=== PATIENT | female | born 1950 | race Caucasian/White ===

== ENCOUNTER 2017-06-18 09:58 | Emergency (ER) | payer MEDICARE ==
[~2017-06-18] VITALS: Ht 157.5 cm; Wt 71.0 kg
[~2017-06-18 09:58] MED LIST: ALLOPURINOL100 MG PO; AMBIEN5 MG PO; AMLODIPINE2.5 MG PO; ATENOLOL50 MG PO; BACTRIM DS1 TAB PO; BUMETANIDE1 MG PO; BUMEX OR; COUMADIN5 MG PO; DIGOXIN0.125 MG PO; DIGOXIN0.25 MG OR; DIGOXIN0.25 MG PO; DILAUDID 2MG2 MG/TA1 PO; EFFEXOR XR75 MG PO; EFFEXOR75 MG PO; FERROUS SULF325 M1 PO; FLEXERIL10 MG OR; KEFLEX500 MG OR; LEVAQUIN750 MG PO; LINZESS145 MCG PO; LISINOPRIL10 MG PO; LOPID600 MG PO; LORTAB 10 PO; LORTAB 1010 MG PO; LORTAB 5 OR; METFORMIN1000 MG PO; METFORMIN500 MG PO; METOPROL TAR25 MG PO; MULTI VITAMIN D1 TAB PO; NEURONTIN300 MG PO; OMEPRAZOLE40 MG PO; PANTOPRAZOLE SO40 MG PO; PERCOCET 10/31 COMBO PO; PERCOCET 5/325M1 TAB OR; PREDNISONE10 MG PO; PREDNISONE20 MG PO; PROZAC40 MG OR; SUCRALFATE1 GM/10 ML PO; TENORMIN50 MG PO; ULTRAM50 MG OR; ULTRAM50 MG PO; VENLAFAXINE HCL75 M1 PO; WARFARIN5 MG PO; WARFARIN7.5 MG PO
[2017-06-18] MEDS ORDERED: XELJANZ XR11 MG PO (10:18)
[2017-06-18] MEDS ORDERED: ENOXAPARIN60 MG/0.1 SC (10:31)
[2017-06-18] MEDS ORDERED: HYDROCO/APAP1 TA9 PO (11:05)
[2017-06-18] MEDS ORDERED: ZOFRAN4 M1 PO (11:05)
[2017-06-18] MEDS ORDERED: MOTRIN400 MG PO (11:05)
[2017-06-18 11:20] VITALS: BP 152/69
== END 2017-06-18 11:20 | disposition home or self-care (01) ==
LOC: ED 09:58
PROC: 2W3HX1Z Immobilization of Left Thumb using Splint (ICD-10-PCS; principal; 2017-06-18)
DX: S62.334A Displaced fracture of neck of fourth metacarpal bone, right hand, initial encounter for closed fracture (principal); W01.0XXA Fall on same level from slipping, tripping and stumbling without subsequent striking against object, initial encounter; Y93.9 Activity, unspecified; Y92.009 Unspecified place in unspecified non-institutional (private) residence as the place of occurrence of the external cause

== ENCOUNTER 2017-06-21 08:35 | Day surgery (SDC) | payer MEDICARE ==
[~2017-06-21] VITALS: Ht 157.5 cm; Wt 71.7 kg
[~2017-06-21 08:35] MED LIST changes: +ENOXAPARIN60 MG/0.1 SC; +HYDROCO/APAP1 TA9 PO; +MOTRIN400 MG PO; +XELJANZ XR11 MG PO; +ZOFRAN4 M1 PO
[2017-06-21] MEDS ORDERED: DIGOXIN0.125 MG PO (09:00)
[2017-06-21] MEDS ORDERED: GABAPENTIN100 MG PO (09:01)
[2017-06-21] MEDS ORDERED: PANTOPRAZOLE SO40 MG PO (09:01)
[2017-06-21] MEDS ORDERED: COUMADIN5 MG PO (09:01)
[2017-06-21] MEDS ORDERED: LINZESS145 MCG (09:01)
[2017-06-21 09:12] VITALS: BP 183/81
== END 2017-06-21 09:50 | disposition home or self-care (01) ==
LOC: ENDO 08:35
PROVIDERS: ATTEND Surgery
DX: Z12.11 Encounter for screening for malignant neoplasm of colon (principal); I10 Essential (primary) hypertension; Z53.8 Procedure and treatment not carried out for other reasons

== ENCOUNTER 2017-07-24 19:31 | Emergency (ER) | payer MEDICARE ==
[~2017-07-24] VITALS: Ht 157.5 cm; Wt 70.0 kg
[~2017-07-24 19:31] MED LIST changes: +GABAPENTIN100 MG PO; +LINZESS145 MCG
[2017-07-24 20:55] LABS: HEMATOCRIT 33.4 % (37.0-47.0); HEMOGLOBIN 9.8 g/dl (12.0-16.0); IMMATURE GRANULOCYTES 1.1 % (0.0-1.0); MEAN CELL VOLUME 82.3 fL CALC (80.0-100.0); MEAN CORPUSCULAR HGB 24.1 pG CALC (26.0-32.0); MEAN CORPUSCULAR HGB CONC 29.3 g/L CALC (32.0-36.0); RED BLOOD COUNT 4.06 mill/uL (4.20-5.60); RED CELL DISTRI WIDTH 19.1 % (11.5-15.5)
[2017-07-24 21:07] LABS: ALBUMIN 4.4 g/dL (3.2-5.0); ALKALINE PHOSPHATASE 99 u/l (38-126); ANION GAP 25 (6-22 (CALC)); BILIRUBIN, TOTAL 0.5 mg/dL (0.0-1.4); BUN 60 mg/dL (8-23); CARBON DIOXIDE 25 mmol/l (22-30); CHLORIDE 90 mmol/l (95-108); LIPASE 141 u/l (23-300); SGOT/AST 52 u/l (9-36); SGPT/ALT 28 u/l (11-66); SODIUM 134 mmol/l (137-146); TOTAL PROTEIN 8.6 g/dL (6.3-8.2)
[2017-07-24 21:08] LABS: BUN/CREATININE RATIO 15 (12-20 (CALC)); CREATININE 4.1 mg/dL (0.5-1.0); ETHYL ALCOHOL 0 mg/dl (0-30); GFR 11 ML/MIN (>=60 (CALC)); GFR FOR AFR.AMER. 13 ML/MIN (>=60 (CALC))
[2017-07-24 21:10] LABS: INTERNATIONAL NORMALIZED RATIO 1.8 RATIO (0.7-1.3); PROTHROMBIN TIME 20.1 SECONDS (9.0-12.5)
[2017-07-24 21:31] LABS: MYOGLOBIN 621 ng/mL (0 - 62)
[2017-07-24 23:02] LABS: URINE BILIRUBIN - DIPSTICK NEGATIVE (NEGATIVE); URINE BLOOD DIPSTICK NEGATIVE (NEGATIVE); URINE COLOR YELLOW; URINE GLUCOSE - DIPSTICK NEGATIVE (NEGATIVE); URINE KETONE NEGATIVE (NEGATIVE); URINE LEUK ESTERASE NEGATIVE (NEGATIVE); URINE NITRITE - DIPSTICK NEGATIVE (Negative); URINE PROTEIN - DIPSTICK 100 mg/dL (NEG-TRACE); URINE SPECIFIC GRAVITY >=1.030; URINE UROBILINOGEN - DIPSTICK 0.2 E.U./dL (0.2)
[2017-07-24 23:07] LABS: BARBITURATES NEGATIVE (NEGATIVE); COCAINE NEGATIVE (NEGATIVE); METHADONE NEGATIVE (NEGATIVE); OXCYCODONE NEGATIVE (NEGATIVE); TETRAHYDROCANNABIONOL NEGATIVE (NEGATIVE); TRICYLIC ANTIDEPRESSANTS NEGATIVE (NEGATIVE)
[2017-07-24 23:08] LABS: URINE CLARITY SL CLOUDY
[2017-07-24 23:16] LABS: URINE AMORPH SEDIMENT MODERATE hpf (NONE-FEW); URINE BACTERIA FEW hpf; URINE FINE GRAN CAST FEW lpf; URINE HYALINE CAST FEW lpf (NONE-RARE); URINE SQUAMOUS EPITHELIAL CELL FEW EPI/hpf (0-FEW); URINE WBC 0-2 WBC/hpf (0-5)
[2017-07-25 02:48] VITALS: BP 119/53
== END 2017-07-25 02:48 | disposition short-term general hospital (02) ==
LOC: ED 19:31 → ED-I 20:59 → ED 07-25 02:48
PROVIDERS: Emergency Medicine
PROC: 0T9B70Z Drainage of Bladder with Drainage Device, Via Natural or Artificial Opening (ICD-10-PCS; principal; 2017-07-24)
DX: R41.82 Altered mental status, unspecified (principal); N17.9 Acute kidney failure, unspecified; I48.91 Unspecified atrial fibrillation; Z79.01 Long term (current) use of anticoagulants; M06.9 Rheumatoid arthritis, unspecified; Z86.73 Personal history of transient ischemic attack (TIA), and cerebral infarction without residual deficits; Z86.718 Personal history of other venous thrombosis and embolism

== ENCOUNTER 2017-08-14 15:54 | Emergency (ER) | payer MEDICARE ==
[~2017-08-14] VITALS: Ht 157.5 cm; Wt 67.0 kg
[2017-08-14] MEDS ORDERED: HYDROCO/APAP1 T13 PO (16:26)
[2017-08-14 16:32] LABS: IMMATURE GRANULOCYTES 0.3 % (0.0-1.0); MEAN CELL VOLUME 80.8 fL CALC (80.0-100.0); MEAN CORPUSCULAR HGB 23.8 pG CALC (26.0-32.0); MEAN CORPUSCULAR HGB CONC 29.4 g/L CALC (32.0-36.0); NEUT# 3.67 thou/uL (2.00-7.15); RED BLOOD COUNT 4.21 mill/uL (4.20-5.60); RED CELL DISTRI WIDTH 17.5 % (11.5-15.5)
[2017-08-14 16:57] LABS: INTERNATIONAL NORMALIZED RATIO 4.5 RATIO (0.7-1.3); PROTHROMBIN TIME 52.2 SECONDS (9.0-12.5)
[2017-08-14 17:02] LABS: CREATININE 1.1 mg/dL (0.5-1.0)
[2017-08-14] MEDS ORDERED: VALACYCLOVIR HCL1 GM PO (17:07)
[2017-08-14 17:25] VITALS: BP 151/73
== END 2017-08-14 17:24 | disposition home or self-care (01) ==
LOC: ED 15:54
PROVIDERS: Family Medicine
DX: G51.0 Bell's palsy (principal); R79.1 Abnormal coagulation profile; I48.91 Unspecified atrial fibrillation; Z79.01 Long term (current) use of anticoagulants; M06.9 Rheumatoid arthritis, unspecified; Z86.718 Personal history of other venous thrombosis and embolism; Z86.73 Personal history of transient ischemic attack (TIA), and cerebral infarction without residual deficits

== ENCOUNTER 2018-01-09 08:54 | Outpatient (REF) | payer MEDICARE ==
[~2018-01-09] VITALS: Ht 157.5 cm; Wt 71.7 kg
[~2018-01-09 08:54] MED LIST changes: +HYDROCO/APAP1 T13 PO; +VALACYCLOVIR HCL1 GM PO
[2018-01-09 11:23] VITALS: BP 134/76
== END 2018-01-09 17:11 | disposition home or self-care (01) ==
LOC: INF 08:54
PROVIDERS: ATTEND Internal Medicine
DX: D50.9 Iron deficiency anemia, unspecified (principal)

== ENCOUNTER 2018-01-16 09:12 | Outpatient (REF) | payer MEDICARE ==
[2018-01-16 11:13] VITALS: BP 155/74
== END 2018-01-16 13:30 | disposition home or self-care (01) ==
LOC: INF 09:12
PROVIDERS: ATTEND Internal Medicine
DX: D50.9 Iron deficiency anemia, unspecified (principal)

== ENCOUNTER 2018-01-23 08:53 | Outpatient (REF) | payer MEDICARE ==
[2018-01-23 09:37] VITALS: BP 113/74
== END 2018-01-23 13:32 | disposition home or self-care (01) ==
LOC: INF 08:53
PROVIDERS: ATTEND Internal Medicine
DX: D50.9 Iron deficiency anemia, unspecified (principal)

== ENCOUNTER 2018-03-21 19:24 | Emergency (ER) | payer MEDICARE ==
[~2018-03-21] VITALS: Ht 157.5 cm; Wt 73.6 kg
[2018-03-21 20:08] LABS: HEMATOCRIT 39.8 % (37.0-47.0); HEMOGLOBIN 12.3 g/dl (12.0-16.0); IMMATURE GRANULOCYTES 0.3 % (0.0-5.0); MEAN CELL VOLUME 91.3 fL CALC (80.0-100.0); MEAN CORPUSCULAR HGB 28.2 pG CALC (26.0-32.0); MEAN CORPUSCULAR HGB CONC 30.9 g/L CALC (32.0-36.0); NEUT# 10.76 thou/uL (2.00-7.15); RED BLOOD COUNT 4.36 mill/uL (4.20-5.60); RED CELL DISTRI WIDTH 18.3 % (11.5-15.5)
[2018-03-21 20:21] LABS: D-DIMER 0.22 mg/L (0.19-0.60)
[2018-03-21 20:22] LABS: BILIRUBIN, TOTAL 0.7 mg/dL (0.0-1.4); INTERNATIONAL NORMALIZED RATIO 2.2 RATIO (0.7-1.3); PROTHROMBIN TIME 22.7 SECONDS (9.0-12.5)
[2018-03-21 20:30] LABS: ALBUMIN 4.9 g/dL (3.2-5.0); CREATININE 5.9 mg/dL (0.5-1.0); POTASSIUM 6.9 mmol/l (3.5-5.1); TOTAL PROTEIN 8.6 g/dL (6.3-8.2)
[2018-03-21 23:05] VITALS: BP 115/75
== END 2018-03-21 23:05 | disposition short-term general hospital (02) ==
LOC: ED 19:24
PROVIDERS: Family Medicine
DX: N17.9 Acute kidney failure, unspecified (principal); E87.5 Hyperkalemia; R05 Cough; R11.10 Vomiting, unspecified; R06.02 Shortness of breath; R53.1 Weakness; I48.91 Unspecified atrial fibrillation; Z79.01 Long term (current) use of anticoagulants; M06.9 Rheumatoid arthritis, unspecified

== ENCOUNTER 2018-04-04 10:46 | Emergency (ER) | payer MEDICARE ==
[~2018-04-04] VITALS: Ht 157.5 cm; Wt 65.0 kg
[2018-04-04] MEDS ORDERED: BUMEX1 M1 PO (11:09)
[2018-04-04] MEDS ORDERED: LISINOPRIL10 MG PO (11:10)
[2018-04-04 11:17] LABS: HEMATOCRIT 40.2 % (37.0-47.0); HEMOGLOBIN 12.9 g/dl (12.0-16.0); IMMATURE GRANULOCYTES 2.7 % (0.0-5.0); MEAN CELL VOLUME 88.2 fL CALC (80.0-100.0); MEAN CORPUSCULAR HGB 28.3 pG CALC (26.0-32.0); MEAN CORPUSCULAR HGB CONC 32.1 g/L CALC (32.0-36.0); NEUT# 7.21 thou/uL (2.00-7.15); RED BLOOD COUNT 4.56 mill/uL (4.20-5.60); RED CELL DISTRI WIDTH 17.2 % (11.5-15.5)
[2018-04-04 11:34] LABS: ALBUMIN 4.7 g/dL (3.2-5.0); ALKALINE PHOSPHATASE 79 u/l (38-126); ANION GAP 19 (6-22 (CALC)); BILIRUBIN, TOTAL 0.7 mg/dL (0.0-1.4); BUN 18 mg/dL (8-23); BUN/CREATININE RATIO 17 (12-20 (CALC)); CARBON DIOXIDE 20 mmol/l (22-30); CHLORIDE 104 mmol/l (95-108); CREATININE 1.1 mg/dL (0.5-1.0); GFR 49 ML/MIN (>=60 (CALC)); GFR FOR AFR.AMER. 60 ML/MIN (>=60 (CALC)); POTASSIUM 4.8 mmol/l (3.5-5.1); SGOT/AST 30 u/l (9-36); SODIUM 138 mmol/l (137-146); TOTAL PROTEIN 8.6 g/dL (6.3-8.2)
[2018-04-04 12:50] LABS: URINE BILIRUBIN - DIPSTICK NEGATIVE (NEGATIVE); URINE BLOOD DIPSTICK TRACE-LYSED (NEGATIVE); URINE COLOR YELLOW; URINE GLUCOSE - DIPSTICK NEGATIVE (NEGATIVE); URINE KETONE NEGATIVE (NEGATIVE); URINE LEUK ESTERASE NEGATIVE (NEGATIVE); URINE NITRITE - DIPSTICK NEGATIVE (Negative); URINE PROTEIN - DIPSTICK 30 mg/dL (NEG-TRACE); URINE SPECIFIC GRAVITY 1.015; URINE UROBILINOGEN - DIPSTICK 0.2 E.U./dL (0.2)
[2018-04-04 12:57] LABS: URINE RBC 0-2 RBC/hpf (0-5); URINE SQUAMOUS EPITHELIAL CELL FEW EPI/hpf (0-FEW); URINE WBC 0-2 WBC/hpf (0-5)
[2018-04-04 14:35] LABS: ACT PARTIAL THROMBO TIME 34.9 SECONDS (20.0-32.5); INTERNATIONAL NORMALIZED RATIO 1.4 RATIO (0.7-1.3); PROTHROMBIN TIME 14.4 SECONDS (9.0-12.5)
[2018-04-04 15:53] VITALS: BP 165/74
== END 2018-04-04 15:54 | disposition short-term general hospital (02) ==
LOC: ED 10:46
PROVIDERS: Emergency Medicine
DX: I63.9 Cerebral infarction, unspecified (principal); I48.91 Unspecified atrial fibrillation; M06.9 Rheumatoid arthritis, unspecified; R29.700 NIHSS score 0; Z86.73 Personal history of transient ischemic attack (TIA), and cerebral infarction without residual deficits; Z86.718 Personal history of other venous thrombosis and embolism
CPT/HCPCS: Q9967

== ENCOUNTER → 2018-05-29 | Outpatient (REF) | payer MEDICARE ==
[~2018-05-29] MED LIST changes: +BUMEX1 M1 PO
[2018-05-29 11:24] LABS: HEMATOCRIT 37.2 % (37.0-47.0); HEMOGLOBIN 11.3 g/dl (12.0-16.0); IMMATURE GRANULOCYTES 0.5 % (0.0-5.0); MEAN CORPUSCULAR HGB 26.9 pG CALC (26.0-32.0); MEAN CORPUSCULAR HGB CONC 30.4 g/L CALC (32.0-36.0); NEUT# 4.21 thou/uL (2.00-7.15); RED BLOOD COUNT 4.2 mill/uL (4.20-5.60); RED CELL DISTRI WIDTH 15.4 % (11.5-15.5)
[2018-05-29 11:25] LABS: MEAN CELL VOLUME 88.6 fL CALC (80.0-100.0)
[2018-05-29 11:58] LABS: INTERNATIONAL NORMALIZED RATIO 1.3 RATIO (0.7-1.3); PROTHROMBIN TIME 13.5 SECONDS (9.0-12.5)
[2018-05-29 12:00] LABS: CREATININE 1.1 mg/dL (0.5-1.0); MAGNESIUM 1.7 mg/dL (1.6-2.3); POTASSIUM 4.8 mmol/l (3.5-5.1)
== END | disposition home or self-care (01) ==
LOC: LAB 10:46
PROVIDERS: ATTEND Internal Medicine
DX: I10 Essential (primary) hypertension (principal); I48.2 Chronic atrial fibrillation

== ENCOUNTER 2018-05-31 09:50 | Outpatient (REF) | payer MEDICARE ==
[2018-05-31 10:39] VITALS: BP 131/62
== END 2018-05-31 15:35 | disposition home or self-care (01) ==
LOC: INF 09:50
PROVIDERS: ATTEND Internal Medicine
DX: D50.9 Iron deficiency anemia, unspecified (principal)

== ENCOUNTER 2018-06-28 10:03 | Outpatient (REF) | payer MEDICARE ==
[2018-06-28 14:32] VITALS: BP 139/58
== END 2018-06-28 15:17 | disposition home or self-care (01) ==
LOC: INF 10:03
PROVIDERS: ATTEND Internal Medicine
DX: D50.9 Iron deficiency anemia, unspecified (principal)

== ENCOUNTER 2018-10-22 21:29 | Inpatient (IN) | payer MEDICARE, MEDICAID ==
[~2018-10-22] VITALS: Ht 157.5 cm; Wt 77.6 kg
[2018-10-22] MEDS ORDERED: METFORMIN500 MG PO (21:40)
--- NOTE | 2018-10-22 21:41 | NUR ---
PT WHEELED TO ROOM
--- NOTE | 2018-10-22 23:05 | NUR ---
PT RETURNED FROM RADIOLOGY.
[2018-10-22 23:16] LABS: IMMATURE GRANULOCYTES 0.5 % (0.0-5.0); MEAN CELL VOLUME 91.3 fL CALC (80.0-100.0); MEAN CORPUSCULAR HGB 29.3 pG CALC (26.0-32.0); MEAN CORPUSCULAR HGB CONC 32.1 g/L CALC (32.0-36.0); NEUT# 6.22 thou/uL (2.00-7.15); RED BLOOD COUNT 3.58 mill/uL (4.20-5.60); RED CELL DISTRI WIDTH 13.5 % (11.5-15.5)
[2018-10-22] MEDS ORDERED: HYDROCODONE/ACE1 TAB PO (23:17)
[2018-10-22 23:18] LABS: HEMATOCRIT 32.7 % (37.0-47.0); HEMOGLOBIN 10.5 g/dl (12.0-16.0)
[2018-10-22 23:49] LABS: ALBUMIN 4.3 g/dL (3.2-5.0); BILIRUBIN, TOTAL 0.5 mg/dL (0.0-1.4); TOTAL PROTEIN 7.3 g/dL (6.3-8.2)
[2018-10-22 23:51] LABS: CREATININE 3.5 mg/dL (0.5-1.0)
[2018-10-22 23:57] LABS: POTASSIUM 6.4 mmol/l (3.5-5.1)
[2018-10-23] VITALS (8 sets, daily range): BP systolic 98–131; BP diastolic 44–67
--- NOTE | 2018-10-23 00:40 | NUR ---
WAITING FOR MEDS TO PROFILE IN [facility]
[2018-10-23 00:48] LABS: MYOGLOBIN 294 ng/mL (0 - 62)
--- NOTE | 2018-10-23 01:13 | NUR ---
MEDS WOULD NOT CROSS OVER...HAD TO BE RE-ORDERED PER C[facility]AL PHARM. PT UP TO BR TO VOID.
--- NOTE | 2018-10-23 01:40 | NUR ---
CALLED TO GIVE REPORT. NURSE WILL CALL BACK.
--- NOTE | 2018-10-23 01:54 | NUR ---
REPORT TO JENNIFER PINO.
--- NOTE | 2018-10-23 01:54 | NUR ---
PT TO FLOOR WITH POCKET MONITOR AND IVF INFUSING
--- NOTE | 2018-10-23 01:55 | NUR ---
PT ARRIVED TO FLOOR ACCOMPANIED BY ED NURSE. SELF AMBULATED TO BED W/OUT DIFFICULTY W/ONLY STANDBY ASSIST. PT TO STANDING SCALE AND TO BED. PT ORIENTED TO LIGHTS, BED, CALL SYSTEM, ROOM AND TV. IV FLUIDS ARE BEING BOLUSED AT THIS TIME, WHEN COMPLETE WILL BE CHANGED TO 150CC OF NS/HR. IV SITE APPEARS HEALTHY AT THIS TIME. PT LOCX3. PT ASSESSED, LUNG SOUNDS ARE CLEAR, ABD SOFT NON-TENDER W/ACTIVE BOWEL SOUNDS, PT DENIES PAIN/N/V AT THIS TIME. 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 NO NOTED EDEMA, SKIN IS INTACT, NEURO'S INTACT. PT REPORTS STOOL 3 DAYS AGO NORMAL FOR HER. WILL CONTINUE TO MONITOR FOR BOWEL MOVEMENT SINCE ARRIVING TO FLOOR IN RESPONSE TO MEDS GIVEN IN ED. POC DISCUSSED W/PT. ACCU-CHECK/GLUCOSE CHECKED @200/SNACK PROVIDED/REQUEST. V/S ARE STABLE AT THIS TIME.
[2018-10-23 02:23] LABS: URINE BILIRUBIN - DIPSTICK NEGATIVE (NEGATIVE); URINE BLOOD DIPSTICK NEGATIVE (NEGATIVE); URINE COLOR YELLOW; URINE GLUCOSE - DIPSTICK NEGATIVE (NEGATIVE); URINE KETONE NEGATIVE (NEGATIVE); URINE LEUK ESTERASE NEGATIVE (NEGATIVE); URINE NITRITE - DIPSTICK NEGATIVE (Negative); URINE PROTEIN - DIPSTICK NEGATIVE (NEG-TRACE); URINE UROBILINOGEN - DIPSTICK 0.2 E.U./dL (0.2)
--- NOTE | 2018-10-23 03:20 | NUR ---
IVF ADMINISTERED ORDERS PROVIDE RUNNING 150CC/HR TO A 22 IN LEFT HAND/SITE APPEARS HEALTHY AT THIS TIME. PT WAS SLEEPING SOUNDLY WHEN I ENTERED ROOM, BUT AWOKE TO MY VOICE. DENIES ANY OTHER NEEDS AT THIS TIME. CALL LIGHT AT SIDE.
--- NOTE | 2018-10-23 04:50 | NUR ---
PT IS SLEEPING SOUNDLY AT THIS TIME. NO S/O DISTRESS NOTED. CALL LIGHT AT SIDE.
--- NOTE | 2018-10-23 06:00 | NUR ---
PT V/S ASSESSED AND PT ASSISTED TO RESTROOM. 200CC OF DARK YELLOW CLEAR URINE EMPTIED. OTHER FLOOR NURSE ASSISTED PT BACK TO BED.
--- NOTE | 2018-10-23 07:05 | NUR ---
PT REPORT RECIEVED FROM JENNIFER PINO. PT RESTING. NO S/S OF DISTRESS. CALL LIGHT IN REACH. WILL CONTINUE TO MONITOR.
--- NOTE | 2018-10-23 07:57 | NUR ---
PT A/O X3. SPEECH IS CLEAR. RESP EVEN AND UNLABORED. LUNG SOUNDS CLEAR. TELE IN PLACE. BOWEL SOUNDS ACTIVE X4. STRONG RADIAL AND PEDAL PULSES. #22 LH NS @150. SITE APPEARS HEALTHY. SKIN INTACT. PT DENIES ANY PAIN OR NEEDS. POC DISCUSSED. SAFETY PRECAUTIONS IN PLACE. CALL LIGHT IN REACH. WILL CONTINUE TO MONITOR.
--- NOTE | 2018-10-23 11:30 | NUR ---
PT WATCHING TELEVISION. NO C/O PAIN OR NEEDS. TELE IN PLACE. CALL LIGHT IN REACH. WILL CONTINUE TO MONITOR.
[2018-10-23 12:47] LABS: HEMATOCRIT 31.2 % (37.0-47.0); HEMOGLOBIN 9.9 g/dl (12.0-16.0); IMMATURE GRANULOCYTES 0.5 % (0.0-5.0); MEAN CELL VOLUME 91.8 fL CALC (80.0-100.0); MEAN CORPUSCULAR HGB 29.1 pG CALC (26.0-32.0); MEAN CORPUSCULAR HGB CONC 31.7 g/L CALC (32.0-36.0); NEUT# 7.54 thou/uL (2.00-7.15); RED BLOOD COUNT 3.4 mill/uL (4.20-5.60); RED CELL DISTRI WIDTH 13.5 % (11.5-15.5)
[2018-10-23 13:01] LABS: ALBUMIN 3.7 g/dL (3.2-5.0); BILIRUBIN, TOTAL 0.4 mg/dL (0.0-1.4); CREATININE 3.1 mg/dL (0.5-1.0); MAGNESIUM 1.5 mg/dL (1.6-2.3); TOTAL PROTEIN 6.5 g/dL (6.3-8.2)
[2018-10-23 13:11] LABS: POTASSIUM 5.2 mmol/l (3.5-5.1)
--- NOTE | 2018-10-23 13:24 | NUR ---
PT TRANSPORT TO ULTRASOUND VIA WC ACCOMPIANED BY VOLUNTEER IN STABLE CONDITION
--- NOTE | 2018-10-23 16:34 | NUR ---
PT ON PHONE. NO C/O PAIN OR NEEDS. CALL LIGHT IN REACH. WILL CONTINUE TO MONITOR.
[2018-10-23 19:02] LABS: PROTHROMBIN TIME 139.2 SECONDS (9.0-12.5)
--- NOTE | 2018-10-23 19:10 | NUR ---
ROSA MARIA FROM LAB CALLED W/ CRITICAL LABS; PT-139.2, INR-12. DR. BRICENO CALLED. NEW ORDERS RECIEVED. PT DENIES HAVING ANY BOWEL MOVEMENTS TODAY. NO S/S OF BLEEDING. CALL LIGHT IN REACH. WILL CONTINUE TO MONITOR.
--- NOTE | 2018-10-23 20:11 | NUR ---
pt medicated and assessed at this time. poc discussed. no s/o bleeding at this time. urine clear yellow, no major bruising/skin is clear, abd soft non-tender w/active bowel sounds, pupils reactive. will conitinue to monitor closely. call light in hand and son is at bedside.
[2018-10-24] VITALS (7 sets, daily range): BP systolic 100–120; BP diastolic 50–87
--- NOTE | 2018-10-24 01:48 | NUR ---
stool collected for lab sample. hat emptied of 200cc of clear yellow urine and 200cc of runny dark brown stool.
--- NOTE | 2018-10-24 03:00 | NUR ---
PT IS SLEEPING AT THIS TIME. NO S/O DISTRESS NOTED. CALL LIGHT AT SIDE.
[2018-10-24 05:01] LABS: HEMATOCRIT 29.3 % (37.0-47.0); HEMOGLOBIN 9.3 g/dl (12.0-16.0); IMMATURE GRANULOCYTES 0.4 % (0.0-5.0); MEAN CELL VOLUME 91.6 fL CALC (80.0-100.0); MEAN CORPUSCULAR HGB 29.1 pG CALC (26.0-32.0); MEAN CORPUSCULAR HGB CONC 31.7 g/L CALC (32.0-36.0); NEUT# 6.23 thou/uL (2.00-7.15); RED BLOOD COUNT 3.2 mill/uL (4.20-5.60); RED CELL DISTRI WIDTH 13.4 % (11.5-15.5)
[2018-10-24 05:12] LABS: ALBUMIN 3.3 g/dL (3.2-5.0); BILIRUBIN, TOTAL 0.3 mg/dL (0.0-1.4); MAGNESIUM 1.6 mg/dL (1.6-2.3); POTASSIUM 4.8 mmol/l (3.5-5.1)
[2018-10-24 05:17] LABS: CREATININE 2.1 mg/dL (0.5-1.0)
--- NOTE | 2018-10-24 07:05 | NUR ---
PT REPORT RECIEVED FROM JENNIFER BUTT. PT SLEEPING. NO S/S OF DISTRESS. CALL LIGHT IN REACH. WILL CONTINUE TO MONITOR.
--- NOTE | 2018-10-24 07:45 | NUR ---
PT A/O X3. SPEECH IS CLEAR. RESP EVEN AND UNLABORED. LUNG SOUNDS CLEAR. TELE IN PLACE. BOWEL SOUNDS ACTIVE X4. STRONG RADIAL AND PEDAL PULSES. #22 LH NS @75. SITE APPEARS HEALTHY. PT HAS SMALL BRUISED AREAS NOTED THROUGHOUT BODY; PT STATES SOME COME BEFORE BEING ADMITTED TO HOSPITAL. PT DENIES ANY PAIN OR NEEDS. POC DISCUSSED. SAFETY PRECAUTIONS IN PLACE. CALL LIGHT IN REACH. WILL CONTINUE TO MONITOR.
--- NOTE | 2018-10-24 08:03 | NUR ---
LACEY FROM LAB CALLED WITH CRITCAL RESULT; PT- 0.52, INR- 5. ATTEMPTED TO CALL MD; NO RESPONSE. WILL CONTINUE TO CALL.
--- NOTE | 2018-10-24 08:27 | NUR ---
MD CALLED BACK REGARDING PT. CRITICAL LABS GIVEN TO MD WELL PT STATUS. NO NEW ORDERS AT THIS TIME. WILL CONTINUE TO MONITOR.
--- NOTE | 2018-10-24 11:50 | NUR ---
PT SITTING IN BED EATING LUNCH. NO C/O PAIN OR NEEDS. CALL LIGHT IN REACH. WILL CONTINUE TO MONITOR.
--- NOTE | 2018-10-24 16:35 | NUR ---
PT RESTING. NO C/O PAIN OR NEEDS. CALL LIGHT IN REACH. WILL CONTINUE TO MONITOR.
--- NOTE | 2018-10-24 20:10 | NUR ---
ASSESSMENT COMPLETED. NO RESP. DISTRESS NOTED; DENIES NEEDS/PAIN. PT. RREPORTS THAT SHE HAS HAD BLACK STOOLS SINCE SHE TOOK ORAL VITAMIN K EARLIER IN THE DAY; NONE TO INSPECT. PT. INSTRUCTED TO CALL THIS CLAIMS ADJUSTOR WITH EVERY BM TO BE INSPECTED; VERRBALIZES UNDERSTANDING. WILL CONTINUE TO MONITOR. CALL LIGHT IS IN REACH.
--- NOTE | 2018-10-24 20:20 | NUR ---
SPOKE WITH DR. BRICENO AND NOTIFIED HIM OF PT. REPORTING BLACK STOOLS SINCE POST ADMINISTRATION OF VITAMIN K AND ALSO UPDATED HIM OF PAST SURGICAL HX OF 1 FOOT OF COLON REMOVAL 3-4YRS AGO PER PT. NEW ORDERS RECEIVED AND TO BE CARRIED OUT. UPDATED PT. WITH NEW ORDERS.
[2018-10-24 21:15] LABS: HEMATOCRIT 32.7 % (37.0-47.0)
--- NOTE | 2018-10-25 00:10 | NUR ---
PT. RESTING IN BED WITH NO DISTRESS NOTED; DENIES NEEDS. PT. REPORTS SHE HAS NOT HAD ANY MORE STOOLS THUS FAR; ENCOURAGED TO CALL FOR ANY AND ALL NEEDS; VERBALIZES UNDERSTANDING. CALL LIGHT IS IN REACH.
--- NOTE | 2018-10-25 03:00 | NUR ---
RESTING IN BED WITH EYES CLOSED; NO DISTRESS NOTED; RESP. EVEN AND UNLABORED. CALL LIGHT IS IN REACH. WILL CONTINUE TO MONITOR.
[2018-10-25 04:18] VITALS: BP 135/69
--- NOTE | 2018-10-25 04:31 | NUR ---
PT. DENIES ANY MORE STOOLS THROUGHOUT THE NIGHT. NEW BAG OF IVF HUNG AT THIS TIME. PT. DENIES PAIN OR NEEDS FOR PAIN MEDICATION. ENCOURAGED TO CALL FOR ANY NEEDS. CALL LIGHT IS IN REACH.
[2018-10-25 05:06] LABS: HEMATOCRIT 29.1 % (37.0-47.0); HEMOGLOBIN 8.9 g/dl (12.0-16.0); IMMATURE GRANULOCYTES 0.4 % (0.0-5.0); MEAN CELL VOLUME 93.3 fL CALC (80.0-100.0); MEAN CORPUSCULAR HGB 28.5 pG CALC (26.0-32.0); MEAN CORPUSCULAR HGB CONC 30.6 g/L CALC (32.0-36.0); RED BLOOD COUNT 3.12 mill/uL (4.20-5.60); RED CELL DISTRI WIDTH 13.7 % (11.5-15.5)
[2018-10-25 05:27] LABS: ALBUMIN 3.2 g/dL (3.2-5.0); BILIRUBIN, TOTAL 0.3 mg/dL (0.0-1.4); CREATININE 1.3 mg/dL (0.5-1.0); MAGNESIUM 1.5 mg/dL (1.6-2.3); POTASSIUM 4.6 mmol/l (3.5-5.1); TOTAL PROTEIN 5.8 g/dL (6.3-8.2)
--- NOTE | 2018-10-25 06:30 | NUR ---
PT. RESTING IN BED WITH EYES CLOSED; NO DISTRESS NOTED; RESP. EVEN AND UNLABORED.
[2018-10-25 06:53] LABS: INTERNATIONAL NORMALIZED RATIO 1.4 RATIO (0.7-1.3); PROTHROMBIN TIME 14.6 SECONDS (9.0-12.5)
--- NOTE | 2018-10-25 07:00 | NUR ---
REPORT RECEIVED FROM SANTORN;PT RESTING IN SEMI FOWLERS POSITION;INTRODUCED SELF TO PT AND POC DISCUSSED;RESPIRATIONS EVEN AND UNLABORED ON RA;PT REPORTS LOWER BACK PAIN AND REQUESTS PAIN MEDICATION.PT TO BE MEDICATED PER EMAR ORDER;IV FLUIDS INFUSING TO LEFT HAND WITH EASE;ENCOURAGED PT TO CALL FOR ASSISTANCE IF NEEDED;ALL SAFETY PRECAUTIONS IN PLACE WITH BED IN THE LOWEST POSITION AND CALL LIGHT IN REACH;WILL CONTINUE TO MONITOR
--- NOTE | 2018-10-25 07:50 | NUR ---
PT OOB RESTING IN RECLINER, A&O X4;VS OBTAINED AND ASSESSMENT COMPLETED;PT REPORTS LOWER BACK PAIN RATING 6/10 ON THE PAIN SCALE AND IS MEDICATED WITH PRN LORTAB 10/325MG PO;RESPIRATIONS EVEN AND UNLABORED ON RA, CLEAR LUNG SOUNDS;ABDOMEN SOFT ON PALPATION AND ACTIVE IN ALL 4 QUADRANTS;STRONG PEDAL PULSES;SKIN INTACT, GENERALIZED BRUISING NOTED;#22G TO LEFT HAND INFUSING NS @ 75ML/HR,SITE APPEARS HEALTHY;TELE MONITORING IN PLACE;ACCUCHECK 88, NO COVERAGE NEEDED;PT DENIES ANY ADDITIONAL NEEDS AT THIS TIME AND IS ENCOURAGED TO CALL FOR ASSISTANCE IF NEEDED;CALL LIGHT IN REACH;WILL CONTINUE TO MONITOR
[2018-10-25 07:53] VITALS: BP 164/61
--- NOTE | 2018-10-25 07:55 | NUR ---
CALLED AT [phone] TOLD HIM ABOUT CONSULTATION. HE STATED THANK YOU AND PLACED IT ON HIS LIST.
[2018-10-25 11:04] VITALS: BP 152/63
--- NOTE | 2018-10-25 11:20 | NUR ---
PT OOB RESTING IN RECLINER;RESPIRATIONS EVEN AND UNLABORED ON RA;PT DENIES ANY CURRENT PAIN OR DISCOMFORTS;IV SITE TO LEFT HAND FLUSHED AND PATENT;TELE MONITORING IN PLACE;ACCUCHECK 109, NO COVERAGE NEEDED;PT ENCOURAGED TO CALL FOR ASSISTANCE IF NEEDED;CALL LIGHT IN REACH;WILL CONTINUE TO MONITOR
--- NOTE | 2018-10-25 11:50 | NUR ---
AT BEDSIDE DISCUSSING POC.
--- NOTE | 2018-10-25 14:53 | NUR ---
ALL DISCHARGE INSTRUCTIONS PROVIDED AT THIS TIME, QUESTIONS ANSWERED;PT ENCOURAGED TO FOLLOW UP WITH OUTPT;IV SITE REMOVED WITH CATHETER INTACT;PT DENIES ANY ADDITIONAL NEEDS;WHEELCHAIR TO BE PROVIDED FOR DISCHARGE HOME.
--- NOTE | 2018-10-25 15:00 | NUR ---
Discharge instructions given. Patient verbalizes understanding of same. Discharged in stable condition via Taxi to Home with family. All belongings sent with pt.
[2018-10-26] MEDS ORDERED: BUMETANIDE1 MG PO (19:34)
[2018-10-26] MEDS ORDERED: GABAPENTIN100 MG PO (19:35)
== END 2018-10-25 15:00 | disposition home or self-care (01) | DRG 683 ==
LOC: ED 21:29 → ED-I 10-23 → ED 10-23 00:58 → MS2 10-23 00:59
PROVIDERS: Emergency Medicine; Internal Medicine Nephrology; ADMIT Internal Medicine; ATTEND Internal Medicine
DX: N17.9 Acute kidney failure, unspecified (principal); E87.2 Acidosis; E87.1 Hypo-osmolality and hyponatremia; E87.5 Hyperkalemia; I48.0 Paroxysmal atrial fibrillation; E11.22 Type 2 diabetes mellitus with diabetic chronic kidney disease; I12.9 Hypertensive chronic kidney disease with stage 1 through stage 4 chronic kidney disease, or unspecified chronic kidney disease; N18.3 Chronic kidney disease, stage 3 (moderate); E86.0 Dehydration; J44.9 Chronic obstructive pulmonary disease, unspecified; E11.40 Type 2 diabetes mellitus with diabetic neuropathy, unspecified; M81.0 Age-related osteoporosis without current pathological fracture; M06.9 Rheumatoid arthritis, unspecified; D63.1 Anemia in chronic kidney disease; T50.1X5A Adverse effect of loop [high-ceiling] diuretics, initial encounter; T46.4X5A Adverse effect of angiotensin-converting-enzyme inhibitors, initial encounter; T47.1X5A Adverse effect of other antacids and anti-gastric-secretion drugs, initial encounter; M54.9 Dorsalgia, unspecified; G89.29 Other chronic pain; R79.1 Abnormal coagulation profile; T45.515A Adverse effect of anticoagulants, initial encounter; Z86.73 Personal history of transient ischemic attack (TIA), and cerebral infarction without residual deficits; Z95.2 Presence of prosthetic heart valve; Z86.718 Personal history of other venous thrombosis and embolism; Z79.84 Long term (current) use of oral hypoglycemic drugs; Z79.01 Long term (current) use of anticoagulants; D50.9 Iron deficiency anemia, unspecified
CPT/HCPCS: G0328; S0164

== ENCOUNTER 2018-10-26 18:34 | Emergency (ER) | payer MEDICARE, MEDICAID ==
[~2018-10-26] VITALS: Ht 157.5 cm; Wt 82.0 kg
[~2018-10-26 18:34] MED LIST changes: +HYDROCODONE/ACE1 TAB PO
[2018-10-26 19:15] LABS: HEMATOCRIT 30.2 % (37.0-47.0); HEMOGLOBIN 9.7 g/dl (12.0-16.0); IMMATURE GRANULOCYTES 0.6 % (0.0-5.0); MEAN CELL VOLUME 92.1 fL CALC (80.0-100.0); MEAN CORPUSCULAR HGB 29.6 pG CALC (26.0-32.0); MEAN CORPUSCULAR HGB CONC 32.1 g/L CALC (32.0-36.0); NEUT# 5.46 thou/uL (2.00-7.15); RED BLOOD COUNT 3.28 mill/uL (4.20-5.60); RED CELL DISTRI WIDTH 13.6 % (11.5-15.5)
[2018-10-26 19:31] LABS: INTERNATIONAL NORMALIZED RATIO 1.2 RATIO (0.7-1.3); PROTHROMBIN TIME 12.6 SECONDS (9.0-12.5)
[2018-10-26] MEDS ORDERED: BUMETANIDE1 MG PO (19:34)
[2018-10-26] MEDS ORDERED: GABAPENTIN100 MG PO (19:35)
[2018-10-26 19:46] LABS: ALBUMIN 3.7 g/dL (3.2-5.0); ALKALINE PHOSPHATASE 76 u/l (38-126); BUN 22 mg/dL (8-23); BUN/CREATININE RATIO 27 (12-20 (CALC)); CHLORIDE 113 mmol/l (95-108); CREATININE 0.8 mg/dL (0.5-1.0); GFR > 60 ML/MIN (>=60 (CALC)); GFR FOR AFR.AMER. > 60 ML/MIN (>=60 (CALC)); SGOT/AST 21 u/l (9-36); SODIUM 144 mmol/l (137-146); TOTAL PROTEIN 6.4 g/dL (6.3-8.2)
[2018-10-26 19:58] LABS: ANION GAP 13 (6-22 (CALC)); BILIRUBIN, TOTAL 0.6 mg/dL (0.0-1.4); CARBON DIOXIDE 23 mmol/l (22-30); MYOGLOBIN 27 ng/mL (0 - 62); POTASSIUM 5.2 mmol/l (3.5-5.1)
[2018-10-26 20:02] LABS: URINE BILIRUBIN - DIPSTICK NEGATIVE (NEGATIVE); URINE BLOOD DIPSTICK TRACE-INTACT (NEGATIVE); URINE COLOR YELLOW; URINE GLUCOSE - DIPSTICK NEGATIVE (NEGATIVE); URINE KETONE NEGATIVE (NEGATIVE); URINE LEUK ESTERASE NEGATIVE (NEGATIVE); URINE NITRITE - DIPSTICK NEGATIVE (Negative); URINE PROTEIN - DIPSTICK 30 mg/dL (NEG-TRACE); URINE SPECIFIC GRAVITY 1.015; URINE UROBILINOGEN - DIPSTICK 0.2 E.U./dL (0.2)
[2018-10-26 20:20] LABS: URINE SQUAMOUS EPITHELIAL CELL FEW EPI/hpf (0-FEW)
[2018-10-26 21:32] LABS: BARBITURATES NEGATIVE (NEGATIVE); COCAINE NEGATIVE (NEGATIVE); METHADONE NEGATIVE (NEGATIVE); OXCYCODONE POSITIVE (NEGATIVE); TETRAHYDROCANNABIONOL NEGATIVE (NEGATIVE); TRICYLIC ANTIDEPRESSANTS NEGATIVE (NEGATIVE)
[2018-10-26 22:58] VITALS: BP 168/71
== END 2018-10-26 22:57 | disposition short-term general hospital (02) ==
LOC: ED 18:34
PROVIDERS: Emergency Medicine
DX: R41.82 Altered mental status, unspecified (principal); G89.29 Other chronic pain; M54.5 Low back pain; I48.91 Unspecified atrial fibrillation; E11.9 Type 2 diabetes mellitus without complications; M06.9 Rheumatoid arthritis, unspecified; Z86.73 Personal history of transient ischemic attack (TIA), and cerebral infarction without residual deficits; Z86.718 Personal history of other venous thrombosis and embolism; Z79.01 Long term (current) use of anticoagulants; Z79.84 Long term (current) use of oral hypoglycemic drugs

== ENCOUNTER 2019-04-11 00:48 | Emergency (ER) | payer MEDICARE ==
[~2019-04-11] VITALS: Ht 157.5 cm; Wt 68.0 kg
[~2019-04-11 00:48] MED LIST changes: +KEFLEX500 M1 PO
[2019-04-11 02:00] LABS: IMMATURE GRANULOCYTES 0.9 % (0.0-5.0); MEAN CELL VOLUME 91.3 fL CALC (80.0-100.0); MEAN CORPUSCULAR HGB 28.4 pG CALC (26.0-32.0); MEAN CORPUSCULAR HGB CONC 31.1 g/L CALC (32.0-36.0); RED BLOOD COUNT 2.99 mill/uL (4.20-5.60); RED CELL DISTRI WIDTH 15.4 % (11.5-15.5)
[2019-04-11 02:01] LABS: HEMATOCRIT 27.3 % (37.0-47.0); HEMOGLOBIN 8.5 g/dl (12.0-16.0)
[2019-04-11 02:41] LABS: ALBUMIN 4.5 g/dL (3.2-5.0); BILIRUBIN, TOTAL 0.5 mg/dL (0.0-1.4); CREATININE 1.2 mg/dL (0.5-1.0); POTASSIUM 4.8 mmol/l (3.5-5.1); TOTAL PROTEIN 8.1 g/dL (6.3-8.2)
[2019-04-11 02:44] LABS: MAGNESIUM 1.9 mg/dL (1.6-2.3)
[2019-04-11 04:26] LABS: INTERNATIONAL NORMALIZED RATIO 9.9 RATIO (0.7-1.3); PROTHROMBIN TIME 93.5 SECONDS (9.0-12.5)
[2019-04-11 07:09] VITALS: BP 154/65
== END 2019-04-11 07:10 | disposition short-term general hospital (02) ==
LOC: ED 00:48
PROVIDERS: Family Medicine
DX: T45.511A Poisoning by anticoagulants, accidental (unintentional), initial encounter (principal); D68.32 Hemorrhagic disorder due to extrinsic circulating anticoagulants; K92.2 Gastrointestinal hemorrhage, unspecified; D64.9 Anemia, unspecified; K52.9 Noninfective gastroenteritis and colitis, unspecified; E11.9 Type 2 diabetes mellitus without complications; I48.91 Unspecified atrial fibrillation; M06.9 Rheumatoid arthritis, unspecified; Z79.01 Long term (current) use of anticoagulants; Z86.73 Personal history of transient ischemic attack (TIA), and cerebral infarction without residual deficits; Z86.718 Personal history of other venous thrombosis and embolism
CPT/HCPCS: S0164

== ENCOUNTER 2019-07-06 | Emergency (ER) | payer MEDICARE ==
[2019-07-06] MEDS ORDERED: FLEXERIL PO (17:02)
== END 2019-07-06 17:17 | disposition home or self-care (01) ==
DX: M62.838 Other muscle spasm (principal); E11.9 Type 2 diabetes mellitus without complications; M06.9 Rheumatoid arthritis, unspecified; I48.91 Unspecified atrial fibrillation; Z86.73 Personal history of transient ischemic attack (TIA), and cerebral infarction without residual deficits

== ENCOUNTER 2020-02-21 13:25 | Emergency (ER) | payer MEDICARE ==
[~2020-02-21] VITALS: Ht 157.5 cm; Wt 72.7 kg
[~2020-02-21 13:25] MED LIST changes: +FLEXERIL PO
[2020-02-21 14:06] LABS: IMMATURE GRANULOCYTES 0.6 % (0.0-5.0); MEAN CORPUSCULAR HGB 26.1 pG CALC (26.0-32.0); MEAN CORPUSCULAR HGB CONC 28.9 g/dL CAL (32.0-36.0); NEUT# 7.31 thou/uL (2.00-7.15); RED BLOOD COUNT 2.49 mill/uL (4.20-5.60); RED CELL DISTRI WIDTH 20.5 % (11.5-15.5)
[2020-02-21 14:08] LABS: HEMATOCRIT 22.5 % (37.0-47.0); HEMOGLOBIN 6.5 g/dl (12.0-16.0); MEAN CELL VOLUME 90.4 fL CALC (80.0-100.0)
[2020-02-21 14:11] LABS: ALBUMIN 3.6 g/dL (3.2-5.0); ALKALINE PHOSPHATASE 60 u/l (38-126); CARBON DIOXIDE 18 mmol/l (22-30); CHLORIDE 107 mmol/l (95-108); CREATININE 1.7 mg/dL (0.5-1.0); GFR 30 ML/MIN (>=60 (CALC)); GFR FOR AFR.AMER. 36 ML/MIN (>=60 (CALC)); SGOT/AST 19 u/l (9-36); SODIUM 136 mmol/l (137-146); TOTAL PROTEIN 6.3 g/dL (6.3-8.2)
[2020-02-21 14:23] LABS: MYOGLOBIN 48 ng/mL (0 - 62)
[2020-02-21 14:36] LABS: ANION GAP 17 (6-22 (CALC)); BILIRUBIN, TOTAL 0.1 mg/dL (0.0-1.4); BUN 92 mg/dL (8-23); BUN/CREATININE RATIO 54 (12-20 (CALC)); POTASSIUM 5.5 mmol/l (3.5-5.1)
[2020-02-21 14:55] LABS: INTERNATIONAL NORMALIZED RATIO 5.1 RATIO (0.7-1.3); PROTHROMBIN TIME 47.3 SECONDS (9.0-12.5)
[2020-02-21 16:44] VITALS: BP 120/78
== END 2020-02-21 16:46 | disposition short-term general hospital (02) ==
LOC: ED 13:25
PROVIDERS: Emergency Medicine
DX: D64.9 Anemia, unspecified (principal); N17.9 Acute kidney failure, unspecified; R19.5 Other fecal abnormalities; T45.515A Adverse effect of anticoagulants, initial encounter; E11.9 Type 2 diabetes mellitus without complications; I48.91 Unspecified atrial fibrillation; M06.9 Rheumatoid arthritis, unspecified; Z79.01 Long term (current) use of anticoagulants; Z86.718 Personal history of other venous thrombosis and embolism; Z86.73 Personal history of transient ischemic attack (TIA), and cerebral infarction without residual deficits; Z53.1 Procedure and treatment not carried out because of patient's decision for reasons of belief and group pressure
CPT/HCPCS: S0164

== ENCOUNTER 2020-03-14 05:15 | Observation (INO) | payer MEDICARE ==
[~2020-03-14] VITALS: Ht 157.5 cm; Wt 70.8 kg
[~2020-03-14 05:15] MED LIST changes: +ZOFRAN4 MG/TAB PO
--- NOTE | 2020-03-14 05:16 | NUR ---
BY EMS TO ROOM
--- NOTE | 2020-03-14 06:15 | NUR ---
LABS DRAWN SWABS DONE IV ESTABLISHED. RESTING QUIETLY AWAITING TEST RESULTS.
--- NOTE | 2020-03-14 06:57 | NUR ---
REPORT TO JENNIFER MCGHEE
[2020-03-14 07:00] LABS: HEMATOCRIT 33.2 % (37.0-47.0); HEMOGLOBIN 9.3 g/dl (12.0-16.0); IMMATURE GRANULOCYTES 0.3 % (0.0-5.0); MEAN CELL VOLUME 93.8 fL CALC (80.0-100.0); MEAN CORPUSCULAR HGB 26.3 pG CALC (26.0-32.0); NEUT# 8.53 thou/uL (2.00-7.15); RED BLOOD COUNT 3.54 mill/uL (4.20-5.60); RED CELL DISTRI WIDTH 17.2 % (11.5-15.5)
--- NOTE | 2020-03-14 07:00 | NUR ---
RECEIVED REPORT FROM ARLIN RODRIGUEZ. PT OFF THE FLOOR AT THIS TIME.
[2020-03-14 07:19] LABS: PROTHROMBIN TIME 19.5 SECONDS (9.0-12.5)
--- NOTE | 2020-03-14 07:21 | NUR ---
RETURNED FROM RADIOLOGY VIA STRETCHER. DENIES PAIN OR DISCOMFORT. RESPS EVEN AND UNLABORED ON ROOM AIR, VSS, MONITORS ATTACHED. REFUSES ORTHOSTATIC BP'S REPORTS UNABLE TO STAND. FAMILY MEMBER AT BEDSIDE.
[2020-03-14 07:23] LABS: ALBUMIN 3.9 g/dL (3.2-5.0); POTASSIUM 4.4 mmol/l (3.5-5.1); TOTAL PROTEIN 7.1 g/dL (6.3-8.2)
[2020-03-14 07:28] LABS: BILIRUBIN, TOTAL 0.7 mg/dL (0.0-1.4); CREATININE 1.3 mg/dL (0.5-1.0)
[2020-03-14 07:35] LABS: MYOGLOBIN 75 ng/mL (0 - 62)
--- NOTE | 2020-03-14 08:20 | NUR ---
PT PLACED ON BEDPAN FOR URINE COLLECTION. REMOVED DIRTY DAIPER THAT PTS STATED SHE WEARS AT HOME USUALLY. VSS. CALL LIGHT WITHIN REACH. WILL CONTINUE TO MONITOR.
--- NOTE | 2020-03-14 09:30 | NUR ---
RESTING IN BED WITH EYES CLOSED, AWAKENS EASILY. RESPS EVEN AND UNLABORED ON ROOM AIR, VSS, MONITORS ATTACHED. DENIES PAIN AT THIS TIME. CALL LIGHT WITHIN REACH. FAMILY MEMBER AT BEDSIDE.
--- NOTE | 2020-03-14 10:59 | NUR ---
REPORT CALLED TO MASON RODRIGUEZ.
--- NOTE | 2020-03-14 11:20 | NUR ---
TO MED SURG VIA STRETCHER, TELE MONITOR IN PLACE.
--- NOTE | 2020-03-14 11:28 | NUR ---
REPORT WAS RECEIVED FROM LITZY. PATIENT CAME VIA STRETCHTER. X3 PERSON ASSISTED PATIENT TO TRANSFER TO BED. PATIENT DENIES PAIN AT THIS TIME. ASSESSMENT DONE. TELE IN PLACE. TELE#[id number]. PATIENT IS A&O X2 BUT DROWSY. ALSO, FORGETFUL AT TIMES. PATIENT STATED SHE FELL AT HOME YESTERDAY. BED ALARM IN PLACE. PATIENT SON ASSISTED WITH SOME QUESTIONS VIA PHONE. RESPS EVEN AND LABORED. CALL LIGHT IN REACH.
[2020-03-14 11:45] VITALS: BP 168/90
--- NOTE | 2020-03-14 14:00 | NUR ---
ELVIS CARE DONE. PURE WICK PLACE YELLOW URINE NOTED. PICTURE TAKEN OF COCCYX RENDESS AND STAGE ONE ULCER. PATIENT DENIES PAIN AT THIS TIME. CALL LIGHT IN REACH.
[2020-03-14 14:17] LABS: URINE BILIRUBIN - DIPSTICK NEGATIVE (NEGATIVE); URINE BLOOD DIPSTICK NEGATIVE (NEGATIVE); URINE COLOR YELLOW; URINE GLUCOSE - DIPSTICK NEGATIVE (NEGATIVE); URINE KETONE NEGATIVE (NEGATIVE); URINE LEUK ESTERASE NEGATIVE (NEGATIVE); URINE PH 5.5 (4.5-8.0); URINE PROTEIN - DIPSTICK NEGATIVE (NEG-TRACE); URINE SPECIFIC GRAVITY 1.015; URINE UROBILINOGEN - DIPSTICK 0.2 E.U./dL (0.2)
[2020-03-14 14:19] LABS: URINE NITRITE - DIPSTICK POSITIVE (Negative)
[2020-03-14 14:32] LABS: URINE RBC 0-2 RBC/hpf (0-5); URINE SQUAMOUS EPITHELIAL CELL FEW EPI/hpf (0-FEW)
[2020-03-14 14:33] LABS: URINE BACTERIA MANY hpf
[2020-03-14 15:56] VITALS: BP 162/78
--- NOTE | 2020-03-14 16:00 | NUR ---
PATIENT IS SLEEPING IN BED WITH NO S/S OF DISTRESS NOTED. BED ALARM IN PLACE AND CALL LIGHT IN REACH.
[2020-03-14 20:00] VITALS: BP 158/86
--- NOTE | 2020-03-14 20:01 | NUR ---
PHYSICAL ASSESMENT COMPLETE. PT CURRENTLY DENIES PAIN OR DISCOMFORT. SCHEDULED MEDICATIONS AND PRN MEDICATION ADMINISTERED, SEE E-MAR. PT DENIES ANY NEEDS AT THIS TIME. PT DROWSY AT THIS YIME BUT A&0. PLAN OF CARE REVIEWED, PT DENIES QUESTIONS, VERBALIZES UNDERSTANDING. ITEMS WITHIN REACH, BED LOCKED IN LOW POSITION W/ BEDRAILS UP X2. CALL IBARRA WITHIN REACH, AGREES TO CALL PRN.
[2020-03-15] VITALS: BP 179/103
[2020-03-15 00:59] VITALS: BP 146/82
--- NOTE | 2020-03-15 02:42 | NUR ---
PT LAYING IN BED WITH EYES CLOSED, APPEARS TO BE SLEEPING, APPEARS COMFORTABLE AND IN NO DISTRESS. RESPIRATIONS REGULAR AND UNLABORED. ITEMS REMAIN WITHIN REACH, CALL IBARRA REMAINS WITHIN REACH. BED REMAINS LOCKED AND IN LOW POSITION WITH BEDRAILS UP X2. WILL CONTINUE TO MONITOR.
[2020-03-15 04:00] VITALS: BP 138/85
--- NOTE | 2020-03-15 04:10 | NUR ---
PT RESTING IN BED, NO SIGNS OF DISTRESS NOTED, RESP EVEN AND UNLABORED. PT VOICES NO NEEDS OR COMPLAINTS AT THIS TIME. CALL LIGHT IN REACH,CONTINUE TO MONITOR.
[2020-03-15 08:00] VITALS: BP 179/89
[2020-03-15 10:44] LABS: INTERNATIONAL NORMALIZED RATIO 2.3 RATIO (0.7-1.3); PROTHROMBIN TIME 22.5 SECONDS (9.0-12.5)
[2020-03-15 11:45] VITALS: BP 158/86
--- NOTE | 2020-03-15 12:00 | NUR ---
PT RESTING IN BED WITOUT COMPLAINTS ASKS ABOUT EVI AND PT DENIES PAIN PT DENIES CP OR SOB iv FLUIDS STARTED AT 50CC/HR ORDERED. PT TALKING ON PHONE TO SISTER FOR 10 MINUTES
--- NOTE | 2020-03-15 16:24 | NUR ---
PT RESTING QUIETLY IN BED DENIED PAIN WHEN ASEKD SISTER ROSS AND SAID PT STATED SHE WAS IN EXCRICIATIING PAIN-- PT REASSESSED AND SHE STATED "IM IN PAIN FOR YEARS AND YEARS NOTIFIED DID NOT WANT TO REORDER PAIN MEDS-- BUT ORDERED ULTRAM UNTIL PATIENT CAN BE REASSESSED TMRW.. GIVEN ULTRAM AT 315 PM SLEEPING SOUNDLY ASKED IF SHE WAS STILL IN PAIN NOW AN SAID "OH YES" PT SLEEPS WHEN NOT IN ROOM. DEMETRIUS MAK OR SOB
[2020-03-15 20:00] VITALS: BP 168/91
--- NOTE | 2020-03-15 20:01 | NUR ---
PHYSICAL ASSESMENT COMPLETE. PT CURRENTLY C/O PAIN, WILL PROVIDE PRN MEDICATION. SCHEDULED MEDICATIONS ADMINISTRED, SEE E-MAR. PT DENIES ANY FURTHER NEEDS AT THIS TIME. PLAN OF CARE REVIEWED, PT DENIES QUESTIONS, VERBALIZES UNDERSTANDING. ITEMS WITHIN REACH, BED LOCKED IN LOW POSITION W/ BEDRAILS UP X2. CALL IBARRA WITHIN REACH, AGREES TO CALL PRN.
[2020-03-16] VITALS: BP 148/72
[2020-03-16 04:00] VITALS: BP 163/86
[2020-03-16 05:20] LABS: HEMATOCRIT 34.5 % (37.0-47.0); HEMOGLOBIN 9.7 g/dl (12.0-16.0); MEAN CORPUSCULAR HGB 25.9 pG CALC (26.0-32.0); MEAN CORPUSCULAR HGB CONC 28.1 g/dL CAL (32.0-36.0); RED BLOOD COUNT 3.75 mill/uL (4.20-5.60); RED CELL DISTRI WIDTH 17.2 % (11.5-15.5)
[2020-03-16 05:33] LABS: BUN 21 mg/dL (8-23); BUN/CREATININE RATIO 25 (12-20 (CALC)); CARBON DIOXIDE 31 mmol/l (22-30); CHLORIDE 98 mmol/l (95-108); CPK 32 u/l (30-165); CREATININE 0.8 mg/dL (0.5-1.0); GFR > 60 ML/MIN (>=60 (CALC)); GFR FOR AFR.AMER. > 60 ML/MIN (>=60 (CALC)); SODIUM 141 mmol/l (137-146)
[2020-03-16 05:36] LABS: ANION GAP 15 (6-22 (CALC)); MAGNESIUM 1.2 mg/dL (1.6-2.3); POTASSIUM 3.2 mmol/l (3.5-5.1)
[2020-03-16 05:39] LABS: INTERNATIONAL NORMALIZED RATIO 3.3 RATIO (0.7-1.3); PROTHROMBIN TIME 31.3 SECONDS (9.0-12.5)
[2020-03-16 07:14] VITALS: BP 153/82
--- NOTE | 2020-03-16 07:14 | NUR ---
PATIENT IN BED AT THIS TIME. AWAKE ALERT AND ORIENTD C/0 GENERALIZED PAIN ALL OVER STATES IS A 3 AT THIS TIME. SIDERAILS UP CALL LIGHT WITHIN REACH. DRESSING ON BUTTOCKS INTACT.
[2020-03-16 11:21] VITALS: BP 134/711
--- NOTE | 2020-03-16 12:05 | NUR ---
PATIENT RESTING AT THIS TIME IN BED STATES PAIN IS A 2 AT THIS TIME. DENIES ALL OTHER NEEDS.
--- NOTE | 2020-03-16 13:56 | NUR ---
AQUA-CELL PLACED ON BUTTOCKS AT THIS TIME. PATIENT WOUND IS PINK AND WITHOUT DRAINAGE AT THIS TIME.
[2020-03-16 16:00] VITALS: BP 151/85
--- NOTE | 2020-03-16 16:00 | NUR ---
PATEINT RESTING IN BED EYES CLOSED RESPIRATIONS EASY AND UNLABORED AT THIS TIME. CALL LIGHT WITHIN REACH SIDERAILS UP X 2
[2020-03-16 18:58] VITALS: BP 135/73
[2020-03-17] VITALS: BP 153/75
[2020-03-17 04:00] VITALS: BP 155/82
[2020-03-17 05:29] LABS: HEMATOCRIT 33.3 % (37.0-47.0); HEMOGLOBIN 9.7 g/dl (12.0-16.0); MEAN CORPUSCULAR HGB 26.2 pG CALC (26.0-32.0); MEAN CORPUSCULAR HGB CONC 29.1 g/dL CAL (32.0-36.0); RED BLOOD COUNT 3.7 mill/uL (4.20-5.60); RED CELL DISTRI WIDTH 17.3 % (11.5-15.5)
[2020-03-17 05:37] LABS: ANION GAP 10 (6-22 (CALC)); BUN 20 mg/dL (8-23); BUN/CREATININE RATIO 25 (12-20 (CALC)); CARBON DIOXIDE 36 mmol/l (22-30); CHLORIDE 94 mmol/l (95-108); CREATININE 0.8 mg/dL (0.5-1.0); GFR > 60 ML/MIN (>=60 (CALC)); GFR FOR AFR.AMER. > 60 ML/MIN (>=60 (CALC)); POTASSIUM 3.5 mmol/l (3.5-5.1); SODIUM 137 mmol/l (137-146)
[2020-03-17 05:54] LABS: MAGNESIUM 1.8 mg/dL (1.6-2.3)
[2020-03-17 06:35] LABS: INTERNATIONAL NORMALIZED RATIO 4.9 RATIO (0.7-1.3); PROTHROMBIN TIME 45.4 SECONDS (9.0-12.5)
[2020-03-17 07:39] VITALS: BP 159/78
--- NOTE | 2020-03-17 07:39 | NUR ---
PATIENT IN BED ALERT AND ORIENTED AT THIS TIME. SIDERAILS UP CALL LIGHT WITHIN REACH. PURWICK IN PLACE AND PULLING TIFFANIE COLOR URINE AT THIS TIME. STATES PAIN LEVEL IS A 4 OUT OF 0-10. DENIES ALL OTHER NEEDS AT THIS TIME.
--- NOTE | 2020-03-17 07:46 | NUR ---
Dr tillman cntacted to make aware if critical pt/inr. instructed to call installation engineer. Dr nolan made aware of pt/inr. pending orders. oncoming nurse made aware.
--- NOTE | 2020-03-17 09:52 | NUR ---
PATIENT C/O PAIN ALL OVER AND STATES HER PAIN IS A 8 OUT OF A PAIN SCALE OF 0-10. PATIENT MEDICATED AT THIS TIME WITH 50MG OF ULTRAM AND PATIENT REPOSITIONED AT THIS TIME. PATIENT CALL LIGHT WITHIN REACH AND ADVISED TO CALL FOR NURSE IF CONDITION OR PAIN GETS WORSE.
--- NOTE | 2020-03-17 10:25 | NUR ---
PATIENT STATES THAT PAIN MEDICATION RELIEVED PAIN AND NOW HER PAIN IS A 5 OUT OF A SCALE OF 0/10.
[2020-03-17 11:20] VITALS: BP 150/99
--- NOTE | 2020-03-17 12:05 | NUR ---
PATIENT IN BED RESTING AT THIS TIME DENIES ALL NEEDS ALL SAFETY MEASURE ARE IN PLACE CALL LIGHT WITHIN REACH SIDERAILS UP X 2
--- NOTE | 2020-03-17 12:30 | NUR ---
PATIENT TAKEN DOWN FOR CT SCAN PER BED AND AIRCRAFT AIR CONDITIONING MECHANIC AND RN. PATIENT TOLERATED TRANSFER WITHOUT ANY ISSUES.
--- NOTE | 2020-03-17 13:00 | NUR ---
PATIENT RETURNED BACK FROM CT SCAN. PATIENT HAD FLUID DRAINED FROM LEFT KNEE (SLIGHTLY ABOVE L. PATELLA). PATIENT TOLERATED PROCEEDURE WELL. 2X2 DRESSING WITH TEGADERM APPLIED TO SITE AND INTACT. PATIENT DENIES ANY NEEDS AT THIS TIME CALL LIGHT WITHIN REACH SIDERAILS UP X 2.
[2020-03-17 15:15] VITALS: BP 156/89
--- NOTE | 2020-03-17 15:45 | NUR ---
PATIENT IN BED WITH EYES CLOSED RESPIRATION EASY AND UN-LABORED. PURWICK IN PLACE AND DRAINING TIFFANIE URINE AT THIS TIME. CALL LIGHT WITHIN REACH SIDERAILS UP X 2.
[2020-03-17] MEDS ORDERED: KEFLEX500 MG PO (15:58)
[2020-03-17] MEDS ORDERED: ULTRAM50 M1 PO (16:05)
[2020-03-17] MEDS ORDERED: PREDNISONE10 MG PO (16:05)
--- NOTE | 2020-03-17 17:48 | NUR ---
PATIENT D/C AT THIS TIME VERBALIZES UNDERSTANDING OF D/C INSTRUCTION AT THIS TIME. SON CALLED AND AWARE OF D/C.
--- NOTE | 2020-03-17 18:40 | NUR ---
Discharge instructions given. Patient verbalizes understanding of same. Discharged in stable condition via Wheelchair to Home with *Other. All belongings sent with pt.
== END 2020-03-17 18:30 | disposition home health service (06) ==
LOC: ED 05:15 → ED-I 08:10 → ED 08:18 → MS2 08:19 → ED-I 08:19 → MS2 10:02
PROVIDERS: Emergency Medicine; Nurse Practitioner; ADMIT Internal Medicine; ATTEND Internal Medicine
PROC: 0M9P3ZZ Drainage of Left Knee Bursa and Ligament, Percutaneous Approach (ICD-10-PCS; principal; 2020-03-17)
DX: N30.90 Cystitis, unspecified without hematuria (principal); N28.9 Disorder of kidney and ureter, unspecified; R41.0 Disorientation, unspecified; I10 Essential (primary) hypertension; I48.91 Unspecified atrial fibrillation; M06.9 Rheumatoid arthritis, unspecified; F32.9 Major depressive disorder, single episode, unspecified; E11.40 Type 2 diabetes mellitus with diabetic neuropathy, unspecified; R79.1 Abnormal coagulation profile; Z20.828 Contact with and (suspected) exposure to other viral communicable diseases; B96.20 Unspecified Escherichia coli [E. coli] as the cause of diseases classified elsewhere; Z91.81 History of falling; Z86.718 Personal history of other venous thrombosis and embolism; Z95.2 Presence of prosthetic heart valve; Z79.01 Long term (current) use of anticoagulants; Z86.73 Personal history of transient ischemic attack (TIA), and cerebral infarction without residual deficits; T45.515A Adverse effect of anticoagulants, initial encounter
CPT/HCPCS: J3475

== ENCOUNTER 2020-04-23 15:11 | Observation (INO) | payer MEDICARE, MEDICAID ==
[~2020-04-23] VITALS: Ht 157.5 cm; Wt 70.0 kg
[~2020-04-23 15:11] MED LIST changes: +KEFLEX500 MG PO; +ULTRAM50 M1 PO
[2020-04-23 16:14] LABS: HEMATOCRIT 29.7 % (37.0-47.0); HEMOGLOBIN 8.5 g/dl (12.0-16.0); IMMATURE GRANULOCYTES 0.9 % (0.0-5.0); MEAN CELL VOLUME 89.2 fL CALC (80.0-100.0); MEAN CORPUSCULAR HGB 25.5 pG CALC (26.0-32.0); MEAN CORPUSCULAR HGB CONC 28.6 g/dL CAL (32.0-36.0); NEUT# 6.43 thou/uL (2.00-7.15); RED BLOOD COUNT 3.33 mill/uL (4.20-5.60); RED CELL DISTRI WIDTH 16.5 % (11.5-15.5)
[2020-04-23 16:31] LABS: ALBUMIN 3.7 g/dL (3.2-5.0); ALKALINE PHOSPHATASE 120 u/l (38-126); BILIRUBIN, TOTAL 0.6 mg/dL (0.0-1.4); CHLORIDE 105 mmol/l (95-108); CREATININE 1.1 mg/dL (0.5-1.0); ETHYL ALCOHOL 0 mg/dl (0-30); GFR 49 ML/MIN (>=60 (CALC)); GFR FOR AFR.AMER. 59 ML/MIN (>=60 (CALC)); SODIUM 134 mmol/l (137-146); TOTAL PROTEIN 7.1 g/dL (6.3-8.2)
[2020-04-23 16:33] LABS: ANION GAP 12 (6-22 (CALC)); BUN 43 mg/dL (8-23); BUN/CREATININE RATIO 39 (12-20 (CALC)); CARBON DIOXIDE 22 mmol/l (22-30)
[2020-04-23 16:34] LABS: SGOT/AST 66 u/l (9-36)
[2020-04-23 16:35] LABS: INTERNATIONAL NORMALIZED RATIO 9.1 RATIO (0.7-1.3); PROTHROMBIN TIME 81.6 SECONDS (9.0-12.5)
[2020-04-23 17:44] LABS: URINE BILIRUBIN - DIPSTICK NEGATIVE (NEGATIVE); URINE BLOOD DIPSTICK NEGATIVE (NEGATIVE); URINE COLOR YELLOW; URINE GLUCOSE - DIPSTICK NEGATIVE (NEGATIVE); URINE KETONE TRACE mg/dL (NEGATIVE); URINE LEUK ESTERASE NEGATIVE (NEGATIVE); URINE NITRITE - DIPSTICK NEGATIVE (Negative); URINE PH 5.5 (4.5-8.0); URINE PROTEIN - DIPSTICK NEGATIVE (NEG-TRACE); URINE SPECIFIC GRAVITY 1.015
[2020-04-23] MEDS ORDERED: LORTAB 1010 MG PO (18:49)
[2020-04-23 21:00] VITALS: BP 159/73
[2020-04-24] VITALS: BP 152/79
[2020-04-24 04:53] VITALS: BP 156/88
[2020-04-24 04:57] LABS: HEMATOCRIT 25.8 % (37.0-47.0); HEMOGLOBIN 7.5 g/dl (12.0-16.0); IMMATURE GRANULOCYTES 0.9 % (0.0-5.0); MEAN CELL VOLUME 89.6 fL CALC (80.0-100.0); MEAN CORPUSCULAR HGB CONC 29.1 g/dL CAL (32.0-36.0); NEUT# 3.44 thou/uL (2.00-7.15); RED BLOOD COUNT 2.88 mill/uL (4.20-5.60); RED CELL DISTRI WIDTH 16.8 % (11.5-15.5)
[2020-04-24 05:23] LABS: ALKALINE PHOSPHATASE 97 u/l (38-126); ANION GAP 10 (6-22 (CALC)); BILIRUBIN, TOTAL 0.4 mg/dL (0.0-1.4); BUN 35 mg/dL (8-23); BUN/CREATININE RATIO 46 (12-20 (CALC)); CARBON DIOXIDE 24 mmol/l (22-30); CHLORIDE 110 mmol/l (95-108); CREATININE 0.8 mg/dL (0.5-1.0); GFR > 60 ML/MIN (>=60 (CALC)); GFR FOR AFR.AMER. > 60 ML/MIN (>=60 (CALC)); MAGNESIUM 1.9 mg/dL (1.6-2.3); POTASSIUM 4.8 mmol/l (3.5-5.1); SGOT/AST 46 u/l (9-36); SODIUM 139 mmol/l (137-146)
[2020-04-24 05:28] LABS: ALBUMIN 2.9 g/dL (3.2-5.0); TOTAL PROTEIN 5.6 g/dL (6.3-8.2)
[2020-04-24 05:30] LABS: PROTHROMBIN TIME 19.3 SECONDS (9.0-12.5)
[2020-04-24 07:39] VITALS: BP 147/73
[2020-04-24 09:05] VITALS: BP 147/73
== END 2020-04-24 12:53 | disposition home or self-care (01) ==
LOC: ED 15:11 → ED-I 18:01 → ED 18:12 → MS2 18:13
PROVIDERS: Student in an Organized Health Care Education/Training Program; ADMIT Internal Medicine; ATTEND Internal Medicine
DX: R41.0 Disorientation, unspecified (principal); R53.1 Weakness; R82.5 Elevated urine levels of drugs, medicaments and biological substances; R79.1 Abnormal coagulation profile; T45.515A Adverse effect of anticoagulants, initial encounter; I48.20 Chronic atrial fibrillation, unspecified; E11.40 Type 2 diabetes mellitus with diabetic neuropathy, unspecified; I50.9 Heart failure, unspecified; M06.9 Rheumatoid arthritis, unspecified; G89.29 Other chronic pain; I10 Essential (primary) hypertension; M19.90 Unspecified osteoarthritis, unspecified site; K55.9 Vascular disorder of intestine, unspecified; F32.9 Major depressive disorder, single episode, unspecified; Z95.2 Presence of prosthetic heart valve; Z86.14 Personal history of Methicillin resistant Staphylococcus aureus infection; Z90.49 Acquired absence of other specified parts of digestive tract; Z79.01 Long term (current) use of anticoagulants; Z79.891 Long term (current) use of opiate analgesic; Z86.718 Personal history of other venous thrombosis and embolism; Z86.73 Personal history of transient ischemic attack (TIA), and cerebral infarction without residual deficits; Z20.822 Contact with and (suspected) exposure to COVID-19

== ENCOUNTER 2020-06-07 03:18 | Emergency (ER) | payer MEDICARE ==
[~2020-06-07] VITALS: Ht 157.5 cm; Wt 69.0 kg
[2020-06-07 03:52] LABS: HEMOGLOBIN 8.1 g/dl (12.0-16.0); MEAN CELL VOLUME 88.5 fL CALC (80.0-100.0); MEAN CORPUSCULAR HGB 23.9 pG CALC (26.0-32.0); NEUT# 7.79 thou/uL (2.00-7.15); RED BLOOD COUNT 3.39 mill/uL (4.20-5.60); RED CELL DISTRI WIDTH 17.8 % (11.5-15.5)
[2020-06-07 04:14] LABS: BILIRUBIN, TOTAL 0.5 mg/dL (0.0-1.4); CREATININE 1.8 mg/dL (0.5-1.0); TOTAL PROTEIN 7.7 g/dL (6.3-8.2)
[2020-06-07 04:16] LABS: POTASSIUM 5.5 mmol/l (3.5-5.1)
[2020-06-07] MEDS ORDERED: [UNRECOGNIZED DRUG - REMARK] (04:49)
[2020-06-07 07:13] LABS: INTERNATIONAL NORMALIZED RATIO 10.4 RATIO (0.7-1.3); PROTHROMBIN TIME 93.1 SECONDS (9.0-12.5)
[2020-06-07 09:22] LABS: URINE BILIRUBIN - DIPSTICK NEGATIVE (NEGATIVE); URINE BLOOD DIPSTICK NEGATIVE (NEGATIVE); URINE COLOR YELLOW; URINE GLUCOSE - DIPSTICK NEGATIVE (NEGATIVE); URINE KETONE NEGATIVE (NEGATIVE); URINE LEUK ESTERASE TRACE (NEGATIVE); URINE NITRITE - DIPSTICK NEGATIVE (Negative); URINE PROTEIN - DIPSTICK NEGATIVE (NEG-TRACE); URINE UROBILINOGEN - DIPSTICK 0.2 E.U./dL (0.2)
[2020-06-07 10:14] VITALS: BP 117/70
== END 2020-06-07 10:29 | disposition short-term general hospital (02) ==
LOC: ED 03:18
PROVIDERS: Emergency Medicine
DX: S72.141A Displaced intertrochanteric fracture of right femur, initial encounter for closed fracture (principal); R79.1 Abnormal coagulation profile; T45.515A Adverse effect of anticoagulants, initial encounter; I48.91 Unspecified atrial fibrillation; E11.9 Type 2 diabetes mellitus without complications; I10 Essential (primary) hypertension; M06.9 Rheumatoid arthritis, unspecified; I50.9 Heart failure, unspecified; W07.XXXA Fall from chair, initial encounter; Y92.009 Unspecified place in unspecified non-institutional (private) residence as the place of occurrence of the external cause; Y93.89 Activity, other specified; Z79.01 Long term (current) use of anticoagulants; Z86.73 Personal history of transient ischemic attack (TIA), and cerebral infarction without residual deficits; Z86.718 Personal history of other venous thrombosis and embolism; Z20.822 Contact with and (suspected) exposure to COVID-19

== ENCOUNTER 2020-07-23 | Emergency (ER) | payer MEDICARE, MEDICAID ==
[~2020-07-23] MED LIST changes: +[UNRECOGNIZED DRUG - REMARK]
[2020-07-23 17:16] LABS: MEAN CORPUSCULAR HGB 28.3 pG CALC (26.0-32.0); MEAN CORPUSCULAR HGB CONC 30.1 g/dL CAL (32.0-36.0); NEUT# 7.85 thou/uL (2.00-7.15); RED BLOOD COUNT 2.3 mill/uL (4.20-5.60); RED CELL DISTRI WIDTH 18.5 % (11.5-15.5)
[2020-07-23 17:23] LABS: HEMATOCRIT 21.6 % (37.0-47.0); HEMOGLOBIN 6.5 g/dl (12.0-16.0); MEAN CELL VOLUME 93.9 fL CALC (80.0-100.0)
[2020-07-23 17:27] LABS: ALBUMIN 3.5 g/dL (3.2-5.0); ALKALINE PHOSPHATASE 85 u/l (38-126); AMYLASE 136 u/l (30-110); ANION GAP 12 (6-22 (CALC)); BILIRUBIN, TOTAL 0.5 mg/dL (0.0-1.4); CARBON DIOXIDE 24 mmol/l (22-30); CHLORIDE 102 mmol/l (95-108); GFR 55 ML/MIN (>=60 (CALC)); GFR FOR AFR.AMER. > 60 ML/MIN (>=60 (CALC)); LIPASE 139 u/l (23-300); POTASSIUM 4.4 mmol/l (3.5-5.1); SGOT/AST 21 u/l (9-36); SODIUM 134 mmol/l (137-146); TOTAL PROTEIN 6.6 g/dL (6.3-8.2)
[2020-07-23 17:29] LABS: BUN 119 mg/dL (8-23); BUN/CREATININE RATIO 119 (12-20 (CALC))
[2020-07-23 17:38] LABS: PROTHROMBIN TIME 70.1 SECONDS (9.0-12.5)
[2020-07-23] MEDS ORDERED: PROZAC10 MG PO (17:41)
[2020-07-23 17:51] LABS: MYOGLOBIN 27 ng/mL (0 - 62)
== END 2020-07-23 20:30 | disposition short-term general hospital (02) ==
PROVIDERS: Emergency Medicine
DX: K92.1 Melena (principal); D68.32 Hemorrhagic disorder due to extrinsic circulating anticoagulants; T45.515A Adverse effect of anticoagulants, initial encounter; E11.9 Type 2 diabetes mellitus without complications; I48.91 Unspecified atrial fibrillation; I50.9 Heart failure, unspecified; M06.9 Rheumatoid arthritis, unspecified; Z86.73 Personal history of transient ischemic attack (TIA), and cerebral infarction without residual deficits; Z86.718 Personal history of other venous thrombosis and embolism; Z53.1 Procedure and treatment not carried out because of patient's decision for reasons of belief and group pressure; Z79.01 Long term (current) use of anticoagulants
CPT/HCPCS: S0164